=== PATIENT | male | born 1955 | race Asian ===

== ENCOUNTER 2020-01-22 16:28 | Inpatient (IN) | payer BC, MEDICAID ==
[~2020-01-22] VITALS: Ht 170.2 cm; Wt 61.2 kg
[2020-01-22 19:32] LABS: CLARITY URINE CLEAR (CLEAR); COLOR URINE YELLOW (YELLOW); KETONES URINE NEGATIVE (NEGATIVE); LEUKOCYTE ESTERASE URINE NEGATIVE (NEGATIVE); NITRITE URINE NEGATIVE (NEGATIVE); OCCULT BLOOD URINE NEGATIVE (NEGATIVE); PROTEIN URINE NEGATIVE (NEGATIVE); SPECIFIC GRAVITY URINE 1.032 (1.005-1.030); UROBILINOGEN URINE 0.2 E.U./dL (0.2-1.0)
[2020-01-22 19:35] LABS: HEMOGLOBIN. 17.6 g/dL (14.0-18.0); MEAN CORPUSCULAR HEMOGLOBIN 33.7 pg (28.0-32.0); MEAN CORPUSCULAR VOLUME 99.6 fL (80.0-94.0); MEAN PLATELET VOLUME 8.1 fl (7.4-10.4); PLATELET 116 x1000/uL (130-400); RED BLOOD CELL COUNT 5.22 mill/uL (4.7-6.1); RED CELL DISTRIBUTION WIDTH 13.4 % (11.6-14.6)
[2020-01-22 19:37] LABS: CHLORIDE 106 mEq/L (98-107)
[2020-01-22 19:45] LABS: INR 0.9; PROTHROMBIN TIME 10.2 sec (9.6-11.0)
[2020-01-22 19:56] LABS: PLATELET ESTIMATE DECREASED
[2020-01-23] MEDS ORDERED: DOCUSATE SODIUM 100MG CAPSULE PO PRN ×2 (06:30→09:00)
[2020-01-23] MEDS ORDERED: DEXTROSE 50% WATER 50ML SYRINGE IV PRN ×4 (06:30→09:00)
[2020-01-23] MEDS ORDERED: DIPHENHYDRAMINE 50MG/ML VIAL IV PRN ×2 (06:30→09:00)
[2020-01-23] MEDS ORDERED: ONDANSETRON HCL 4MG/2ML INJ IV PRN ×2 (06:30→09:00)
[2020-01-23] MEDS ORDERED: CLONIDINE 0.1MG TABLET PO PRN ×2 (06:30→09:00)
[2020-01-23] MEDS ORDERED: MAGNESIUM/ALUMINUM HYDROXIDE/SIMETHICONE 30ML UDC PO PRN ×2 (06:30→09:00)
[2020-01-23] MEDS ORDERED: ENOXAPARIN 40MG/0.4ML SYR SUBCUT SCH (06:30)
[2020-01-23] MEDS ORDERED: GUAIFENESIN 200MG/10ML SUGAR FREE UDC PO PRN ×2 (06:30→09:00)
[2020-01-23] MEDS ORDERED: IPRATROPIUM/ALBUTEROL 0.5-3(2.5)MG/3ML NEB HHN PRN ×2 (06:30→09:00)
[2020-01-23] MEDS ORDERED: ACETAMINOPHEN 325MG TABLET PO PRN (06:30)
[2020-01-23] MEDS ORDERED: HYDROCODONE/ACETAMINOPHEN 5/325MG TABLET PO PRN ×2 (06:30→09:00)
[2020-01-23 06:53] LABS: HEMATOCRIT 51.7 % (42.0-52.0); HEMOGLOBIN 17.6 g/dL (14.0-18.0); MEAN CORPUSCULAR HEMOGLOBIN 33.9 pg (28.0-32.0); MEAN CORPUSCULAR VOLUME 99.6 fL (80.0-94.0); PLATELET 114 x1000/uL (130-400); RED BLOOD CELL COUNT 5.19 mill/uL (4.7-6.1); RED CELL DISTRIBUTION WIDTH 13.3 % (11.6-14.6)
[2020-01-23 06:56] LABS: CHLORIDE 102 mEq/L (98-107)
[2020-01-23] MEDS ORDERED: INSULIN LISPRO 100 UNITS/ML SUBCUT SCH (08:20)
[2020-01-23] MEDS ORDERED: BLOOD SUGAR DIAGNOSTIC STRIP TEST SCH (09:00)
[2020-01-23] MEDS: ENOXAPARIN 40MG/0.4ML SYR SUBCUT SCH ×3 (09:00→11:00)
[2020-01-23] MEDS ORDERED: PANTOPRAZOLE SODIUM 40 MG/VIAL IV SCH (09:00)
[2020-01-23 09:05] VITALS: BP 134/86
[2020-01-23 09:10] VITALS: BP 134/86
[2020-01-23] MEDS: BLOOD SUGAR DIAGNOSTIC STRIP TEST SCH ×3 (11:40→20:49)
[2020-01-23 12:00] VITALS: BP 110/80
[2020-01-23] MEDS: INSULIN LISPRO 100 UNITS/ML SUBCUT SCH ×3 (12:10→21:00)
[2020-01-23] MEDS ORDERED: AZITHROMYCIN 500 MG TABLET PO SCH (14:30)
[2020-01-23 16:00] VITALS: BP 109/79
[2020-01-23] MEDS ORDERED: METF500T MT (16:48)
[2020-01-23] MEDS ORDERED: CRAN650C PO (16:48)
[2020-01-23] MEDS ORDERED: ERGO2000 PO (16:48)
[2020-01-23] MEDS ORDERED: DIPH25CA83 MT (16:48)
[2020-01-23] MEDS ORDERED: DOCU250C69 PO (16:48)
[2020-01-23] MEDS ORDERED: CYAN50003 PO (16:48)
[2020-01-23] MEDS ORDERED: MIRT15TA6 MT (16:48)
[2020-01-23] MEDS ORDERED: IBUP-2030 MT (16:48)
[2020-01-23] MEDS ORDERED: LISI-186 MT (16:48)
[2020-01-23] MEDS ORDERED: ATOR20TA65 MT (16:48)
[2020-01-23] MEDS ORDERED: THIA100T72 MT (16:48)
[2020-01-23] MEDS ORDERED: ATOR40TA70 MT (16:48)
[2020-01-23] MEDS ORDERED: GABA-531 MT (16:48)
[2020-01-23] MEDS ORDERED: TOPUD PO (16:48)
[2020-01-23] MEDS ORDERED: MULT-379 MT (16:48)
[2020-01-23] MEDS ORDERED: MAGN400C MT (16:48)
[2020-01-23] MEDS ORDERED: LORA10TA7 MT (16:48)
[2020-01-23] MEDS ORDERED: XALAO EACHEYE (16:48)
[2020-01-23] MEDS ORDERED: FLUT200B INH (16:48)
[2020-01-23] MEDS: HYDROXYCHLOROQUINE SULFATE 200MG TABLET PO SCH (17:27)
[2020-01-23] MEDS: ZINC SULFATE 220 MG ( 50 ) CAPSULE PO SCH (17:27)
[2020-01-23 20:00] VITALS: BP 127/71
[2020-01-23] MEDS: ASCORBIC ACID 500 MG TABLET PO SCH (20:49)
[2020-01-24] VITALS: BP 120/81
[2020-01-24 04:00] VITALS: BP 118/75
[2020-01-24] MEDS: INSULIN LISPRO 100 UNITS/ML SUBCUT SCH ×4 (06:38→21:00)
[2020-01-24] MEDS: BLOOD SUGAR DIAGNOSTIC STRIP TEST SCH ×4 (06:38→21:00)
[2020-01-24 08:00] VITALS: BP 121/75
[2020-01-24] MEDS: AZITHROMYCIN 250 MG TABLET PO SCH (09:53)
[2020-01-24] MEDS: ASCORBIC ACID 500 MG TABLET PO SCH ×2 (09:53→21:52)
[2020-01-24] MEDS: ZINC SULFATE 220 MG ( 50 ) CAPSULE PO SCH (09:53)
[2020-01-24] MEDS: ENOXAPARIN 40MG/0.4ML SYR SUBCUT SCH (09:53)
[2020-01-24] MEDS: HYDROXYCHLOROQUINE SULFATE 200MG TABLET PO SCH ×2 (09:54→16:26)
[2020-01-24] MEDS: PANTOPRAZOLE SODIUM 40 MG/VIAL IV SCH (09:54)
[2020-01-24 12:00] VITALS: BP 122/80
[2020-01-24] MEDS: ACETAMINOPHEN 325MG TABLET PO PRN (12:41)
[2020-01-24 16:00] VITALS: BP 119/72
[2020-01-24 20:00] VITALS: BP 116/75
[2020-01-25] VITALS: BP 101/68
[2020-01-25 05:30] VITALS: BP 119/81
[2020-01-25] MEDS: BLOOD SUGAR DIAGNOSTIC STRIP TEST SCH ×4 (06:05→21:00)
[2020-01-25] MEDS: INSULIN LISPRO 100 UNITS/ML SUBCUT SCH ×4 (06:05→21:00)
[2020-01-25] MEDS: ACETAMINOPHEN 325MG TABLET PO PRN ×2 (06:05→18:28)
[2020-01-25 08:00] VITALS: BP 148/89
[2020-01-25] MEDS: PANTOPRAZOLE SODIUM 40 MG/VIAL IV SCH (08:45)
[2020-01-25] MEDS: ZINC SULFATE 220 MG ( 50 ) CAPSULE PO SCH (08:46)
[2020-01-25] MEDS: HYDROXYCHLOROQUINE SULFATE 200MG TABLET PO SCH ×2 (08:46→18:09)
[2020-01-25] MEDS: AZITHROMYCIN 250 MG TABLET PO SCH (08:46)
[2020-01-25] MEDS: ENOXAPARIN 40MG/0.4ML SYR SUBCUT SCH (08:46)
[2020-01-25] MEDS: ASCORBIC ACID 500 MG TABLET PO SCH ×2 (08:46→22:24)
[2020-01-25 12:00] VITALS: BP 119/78
[2020-01-25 16:00] VITALS: BP 123/76
[2020-01-25 20:00] VITALS: BP 122/76
[2020-01-26] VITALS: BP 110/75
[2020-01-26 04:00] VITALS: BP 128/65
[2020-01-26] MEDS: ACETAMINOPHEN 325MG TABLET PO PRN ×3 (05:28→20:53)
[2020-01-26] MEDS: INSULIN LISPRO 100 UNITS/ML SUBCUT SCH ×4 (06:27→20:20)
[2020-01-26] MEDS: BLOOD SUGAR DIAGNOSTIC STRIP TEST SCH ×4 (06:27→20:20)
[2020-01-26 08:00] VITALS: BP 139/89
[2020-01-26] MEDS: HYDROXYCHLOROQUINE SULFATE 200MG TABLET PO SCH ×2 (09:35→17:45)
[2020-01-26] MEDS: ZINC SULFATE 220 MG ( 50 ) CAPSULE PO SCH (09:35)
[2020-01-26] MEDS: ASCORBIC ACID 500 MG TABLET PO SCH ×2 (09:35→20:53)
[2020-01-26] MEDS: AZITHROMYCIN 250 MG TABLET PO SCH (09:35)
[2020-01-26] MEDS: ENOXAPARIN 40MG/0.4ML SYR SUBCUT SCH (09:35)
[2020-01-26] MEDS: PANTOPRAZOLE SODIUM 40 MG/VIAL IV SCH (09:35)
[2020-01-26 12:00] VITALS: BP 111/88
[2020-01-26 16:00] VITALS: BP 130/80
[2020-01-26 20:00] VITALS: BP 134/90
[2020-01-27] VITALS: BP 126/81
[2020-01-27 04:00] VITALS: BP 136/64
[2020-01-27] MEDS: BLOOD SUGAR DIAGNOSTIC STRIP TEST SCH ×4 (05:40→21:00)
[2020-01-27] MEDS: ACETAMINOPHEN 325MG TABLET PO PRN ×3 (05:40→23:57)
[2020-01-27] MEDS: INSULIN LISPRO 100 UNITS/ML SUBCUT SCH ×4 (06:30→21:00)
[2020-01-27 08:00] VITALS: BP 136/81
[2020-01-27] MEDS: ZINC SULFATE 220 MG ( 50 ) CAPSULE PO SCH (08:17)
[2020-01-27] MEDS: ASCORBIC ACID 500 MG TABLET PO SCH ×2 (08:17→20:31)
[2020-01-27] MEDS: HYDROXYCHLOROQUINE SULFATE 200MG TABLET PO SCH ×2 (08:17→16:48)
[2020-01-27] MEDS: PANTOPRAZOLE SODIUM 40 MG/VIAL IV SCH (08:17)
[2020-01-27] MEDS: AZITHROMYCIN 250 MG TABLET PO SCH (08:17)
[2020-01-27] MEDS: ENOXAPARIN 40MG/0.4ML SYR SUBCUT SCH (08:18)
[2020-01-27 12:00] VITALS: BP 130/76
[2020-01-27 15:59] LABS: BASOPHILS % 0.2 % (0.0-2.0); HEMATOCRIT. 52.5 % (42.0-52.0); HEMOGLOBIN. 18.2 g/dL (14.0-18.0); LYMPHOCYTES % 12.3 % (20.0-50.0); MEAN CORPUSCULAR VOLUME 98.1 fL (80.0-94.0); MEAN PLATELET VOLUME 8.6 fl (7.4-10.4); MONOCYTES % 10.5 % (2.0-8.0); PLATELET 104 x1000/uL (130-400); RED BLOOD CELL COUNT 5.36 mill/uL (4.7-6.1); RED CELL DISTRIBUTION WIDTH 12.8 % (11.6-14.6)
[2020-01-27 16:02] LABS: CHLORIDE 99 mEq/L (98-107)
[2020-01-27 16:15] VITALS: BP 132/78
[2020-01-27 20:00] VITALS: BP 129/76
[2020-01-28 00:08] VITALS: BP 120/72
[2020-01-28 04:00] VITALS: BP 121/78
[2020-01-28] MEDS: ACETAMINOPHEN 325MG TABLET PO PRN ×3 (06:01→22:37)
[2020-01-28] MEDS: BLOOD SUGAR DIAGNOSTIC STRIP TEST SCH ×4 (06:01→22:37)
[2020-01-28] MEDS: INSULIN LISPRO 100 UNITS/ML SUBCUT SCH ×4 (06:37→22:47)
[2020-01-28 08:00] VITALS: BP 108/67
[2020-01-28] MEDS: PANTOPRAZOLE SODIUM 40 MG/VIAL IV SCH (08:44)
[2020-01-28] MEDS: ZINC SULFATE 220 MG ( 50 ) CAPSULE PO SCH (08:44)
[2020-01-28] MEDS: HYDROXYCHLOROQUINE SULFATE 200MG TABLET PO SCH (08:44)
[2020-01-28] MEDS: ASCORBIC ACID 500 MG TABLET PO SCH ×2 (08:44→22:37)
[2020-01-28] MEDS: ENOXAPARIN 40MG/0.4ML SYR SUBCUT SCH (08:45)
[2020-01-28 12:00] VITALS: BP 119/65
[2020-01-28 16:00] VITALS: BP 107/73
[2020-01-28 20:00] VITALS: BP 121/78
[2020-01-29] VITALS: BP 118/72
[2020-01-29 04:00] VITALS: BP 118/80
[2020-01-29] MEDS: INSULIN LISPRO 100 UNITS/ML SUBCUT SCH ×4 (06:49→21:00)
[2020-01-29] MEDS: BLOOD SUGAR DIAGNOSTIC STRIP TEST SCH ×4 (06:49→21:57)
[2020-01-29 08:00] VITALS: BP 128/79
[2020-01-29] MEDS: PANTOPRAZOLE SODIUM 40 MG/VIAL IV SCH (08:27)
[2020-01-29] MEDS: ENOXAPARIN 40MG/0.4ML SYR SUBCUT SCH (08:27)
[2020-01-29] MEDS: ZINC SULFATE 220 MG ( 50 ) CAPSULE PO SCH (08:27)
[2020-01-29] MEDS: ASCORBIC ACID 500 MG TABLET PO SCH ×2 (08:27→20:27)
[2020-01-29] MEDS: ACETAMINOPHEN 325MG TABLET PO PRN ×2 (08:33→16:57)
[2020-01-29 12:00] VITALS: BP 131/71
[2020-01-29 16:00] VITALS: BP 105/68
[2020-01-29 20:00] VITALS: BP 108/78
[2020-01-30] VITALS: BP 115/64
[2020-01-30 04:00] VITALS: BP 122/82
[2020-01-30 05:24] LABS: CHLORIDE 98 mEq/L (98-107)
[2020-01-30] MEDS: ACETAMINOPHEN 325MG TABLET PO PRN (05:31)
[2020-01-30] MEDS: INSULIN LISPRO 100 UNITS/ML SUBCUT SCH ×4 (06:00→21:00)
[2020-01-30] MEDS: BLOOD SUGAR DIAGNOSTIC STRIP TEST SCH ×4 (06:00→21:03)
[2020-01-30 06:27] LABS: BASOPHILS % 0.3 % (0.0-2.0); HEMATOCRIT. 50.7 % (42.0-52.0); HEMOGLOBIN. 17.7 g/dL (14.0-18.0); LYMPHOCYTES % 11.1 % (20.0-50.0); MEAN CORPUSCULAR HEMOGLOBIN 34.2 pg (28.0-32.0); MEAN CORPUSCULAR VOLUME 97.7 fL (80.0-94.0); MEAN PLATELET VOLUME 9.6 fl (7.4-10.4); MONOCYTES % 8.6 % (2.0-8.0); PLATELET 104 x1000/uL (130-400); RED BLOOD CELL COUNT 5.19 mill/uL (4.7-6.1)
[2020-01-30 07:52] VITALS: BP 117/81
[2020-01-30] MEDS: ENOXAPARIN 40MG/0.4ML SYR SUBCUT SCH (08:24)
[2020-01-30] MEDS: ASCORBIC ACID 500 MG TABLET PO SCH ×2 (08:24→21:04)
[2020-01-30] MEDS: ZINC SULFATE 220 MG ( 50 ) CAPSULE PO SCH (08:24)
[2020-01-30] MEDS: PANTOPRAZOLE SODIUM 40 MG/VIAL IV SCH (08:25)
[2020-01-30] MEDS ORDERED: POTASSIUM CHLORIDE 20MEQ TABLET SR PO SCH (11:15)
[2020-01-30 11:52] VITALS: BP 129/79
[2020-01-30 15:59] VITALS: BP 115/91
[2020-01-30 20:00] VITALS: BP 112/74
[2020-01-31] VITALS: BP 124/74
[2020-01-31 04:00] VITALS: BP 114/82
[2020-01-31] MEDS: BLOOD SUGAR DIAGNOSTIC STRIP TEST SCH ×4 (06:11→21:00)
[2020-01-31] MEDS: INSULIN LISPRO 100 UNITS/ML SUBCUT SCH ×4 (06:11→21:00)
[2020-01-31 08:00] VITALS: BP 114/73
[2020-01-31] MEDS: PANTOPRAZOLE SODIUM 40 MG/VIAL IV SCH (08:00)
[2020-01-31] MEDS: ASCORBIC ACID 500 MG TABLET PO SCH ×2 (08:00→21:06)
[2020-01-31] MEDS: ENOXAPARIN 40MG/0.4ML SYR SUBCUT SCH (08:00)
[2020-01-31] MEDS: ZINC SULFATE 220 MG ( 50 ) CAPSULE PO SCH (08:00)
[2020-01-31 12:00] VITALS: BP 125/70
[2020-01-31] MEDS: ACETAMINOPHEN 325MG TABLET PO PRN (15:40)
[2020-01-31 15:48] VITALS: BP 111/74
[2020-01-31 20:00] VITALS: BP 110/68
[2020-02-01] VITALS: BP 115/66
[2020-02-01 04:00] VITALS: BP 120/79
[2020-02-01] MEDS: INSULIN LISPRO 100 UNITS/ML SUBCUT SCH ×4 (07:10→21:01)
[2020-02-01] MEDS: BLOOD SUGAR DIAGNOSTIC STRIP TEST SCH ×4 (07:37→20:40)
[2020-02-01 08:00] VITALS: BP 95/59
[2020-02-01] MEDS: PANTOPRAZOLE SODIUM 40 MG/VIAL IV SCH (08:14)
[2020-02-01] MEDS: ENOXAPARIN 40MG/0.4ML SYR SUBCUT SCH (08:14)
[2020-02-01] MEDS: ZINC SULFATE 220 MG ( 50 ) CAPSULE PO SCH (08:14)
[2020-02-01] MEDS: ASCORBIC ACID 500 MG TABLET PO SCH ×2 (08:14→20:39)
[2020-02-01 12:00] VITALS: BP 99/74
[2020-02-01 16:00] VITALS: BP 112/66
[2020-02-01 20:00] VITALS: BP 104/70
[2020-02-01] MEDS: ACETAMINOPHEN 325MG TABLET PO PRN (21:02)
[2020-02-02] VITALS: BP 113/72
[2020-02-02 04:00] VITALS: BP 109/77
[2020-02-02] MEDS: BLOOD SUGAR DIAGNOSTIC STRIP TEST SCH ×4 (06:26→20:13)
[2020-02-02] MEDS: INSULIN LISPRO 100 UNITS/ML SUBCUT SCH ×4 (06:47→20:32)
[2020-02-02 08:00] VITALS: BP 116/67
[2020-02-02] MEDS: ASCORBIC ACID 500 MG TABLET PO SCH ×2 (08:23→20:13)
[2020-02-02] MEDS: ZINC SULFATE 220 MG ( 50 ) CAPSULE PO SCH (08:23)
[2020-02-02] MEDS: ENOXAPARIN 40MG/0.4ML SYR SUBCUT SCH (08:23)
[2020-02-02] MEDS: PANTOPRAZOLE SODIUM 40 MG/VIAL IV SCH (08:23)
[2020-02-02 12:00] VITALS: BP 118/88
[2020-02-02 16:00] VITALS: BP 111/74
[2020-02-02 20:00] VITALS: BP 113/72
[2020-02-03] VITALS: BP 106/71
[2020-02-03 04:00] VITALS: BP 98/58
[2020-02-03] MEDS: BLOOD SUGAR DIAGNOSTIC STRIP TEST SCH ×4 (06:31→21:00)
[2020-02-03] MEDS: INSULIN LISPRO 100 UNITS/ML SUBCUT SCH ×4 (06:31→21:00)
[2020-02-03 08:00] VITALS: BP 109/74
[2020-02-03] MEDS: ASCORBIC ACID 500 MG TABLET PO SCH ×2 (10:08→21:18)
[2020-02-03] MEDS: ZINC SULFATE 220 MG ( 50 ) CAPSULE PO SCH (10:08)
[2020-02-03] MEDS: PANTOPRAZOLE SODIUM 40 MG/VIAL IV SCH (10:08)
[2020-02-03] MEDS: ENOXAPARIN 40MG/0.4ML SYR SUBCUT SCH (10:09)
[2020-02-03 12:00] VITALS: BP 110/78
[2020-02-03 16:00] VITALS: BP 114/80
[2020-02-03 20:00] VITALS: BP 107/68
[2020-02-04] VITALS: BP 107/70
[2020-02-04 04:00] VITALS: BP 96/62
[2020-02-04] MEDS: BLOOD SUGAR DIAGNOSTIC STRIP TEST SCH ×4 (06:46→21:00)
[2020-02-04] MEDS: INSULIN LISPRO 100 UNITS/ML SUBCUT SCH ×4 (06:46→21:00)
[2020-02-04 08:00] VITALS: BP 131/76
[2020-02-04] MEDS: PANTOPRAZOLE SODIUM 40 MG/VIAL IV SCH (09:15)
[2020-02-04] MEDS: ZINC SULFATE 220 MG ( 50 ) CAPSULE PO SCH (09:15)
[2020-02-04] MEDS: ASCORBIC ACID 500 MG TABLET PO SCH ×2 (09:15→21:22)
[2020-02-04] MEDS: ENOXAPARIN 40MG/0.4ML SYR SUBCUT SCH (09:15)
[2020-02-04 12:00] VITALS: BP 105/59
[2020-02-04 16:00] VITALS: BP 118/66
[2020-02-04 20:00] VITALS: BP 108/75
[2020-02-05] VITALS: BP 116/73
[2020-02-05 04:00] VITALS: BP 105/72
[2020-02-05] MEDS: BLOOD SUGAR DIAGNOSTIC STRIP TEST SCH ×4 (06:45→21:00)
[2020-02-05] MEDS: INSULIN LISPRO 100 UNITS/ML SUBCUT SCH ×4 (06:46→21:00)
[2020-02-05 08:00] VITALS: BP 99/65
[2020-02-05] MEDS: ZINC SULFATE 220 MG ( 50 ) CAPSULE PO SCH (09:54)
[2020-02-05] MEDS: PANTOPRAZOLE SODIUM 40 MG/VIAL IV SCH (09:54)
[2020-02-05] MEDS: ASCORBIC ACID 500 MG TABLET PO SCH ×2 (09:54→21:10)
[2020-02-05] MEDS: ENOXAPARIN 40MG/0.4ML SYR SUBCUT SCH (09:56)
[2020-02-05 12:00] VITALS: BP 112/70
[2020-02-05 16:00] VITALS: BP 108/69
[2020-02-05] MEDS ORDERED: SODIUM CHLORIDE 45ML SPRAY NS SCH (16:00)
[2020-02-05] MEDS: SODIUM CHLORIDE 45ML SPRAY NS SCH ×2 (17:06→23:56)
[2020-02-05 20:00] VITALS: BP 108/71
[2020-02-06] VITALS: BP 133/76
[2020-02-06 04:00] VITALS: BP 112/72
[2020-02-06] MEDS: SODIUM CHLORIDE 45ML SPRAY NS SCH ×3 (06:14→18:00)
[2020-02-06] MEDS: INSULIN LISPRO 100 UNITS/ML SUBCUT SCH ×4 (06:25→21:00)
[2020-02-06] MEDS: BLOOD SUGAR DIAGNOSTIC STRIP TEST SCH ×4 (06:25→21:00)
[2020-02-06 08:00] VITALS: BP 130/86
[2020-02-06] MEDS: ENOXAPARIN 40MG/0.4ML SYR SUBCUT SCH (08:31)
[2020-02-06] MEDS: ZINC SULFATE 220 MG ( 50 ) CAPSULE PO SCH (08:32)
[2020-02-06] MEDS: PANTOPRAZOLE SODIUM 40 MG/VIAL IV SCH (08:32)
[2020-02-06] MEDS: ASCORBIC ACID 500 MG TABLET PO SCH ×2 (08:32→22:03)
[2020-02-06 11:48] VITALS: BP 114/78
[2020-02-06 14:18] LABS: CHLORIDE 109 mEq/L (98-107)
[2020-02-06 16:00] VITALS: BP 114/78
[2020-02-06 18:32] LABS: BASOPHILS % 0.8 % (0.0-2.0); EOSINOPHILS % 2.5 % (0.0-5.0); HEMATOCRIT. 43.1 % (42.0-52.0); HEMOGLOBIN. 15.3 g/dL (14.0-18.0); LYMPHOCYTES % 25.1 % (20.0-50.0); MEAN CORPUSCULAR HEMOGLOBIN 36.1 pg (28.0-32.0); MEAN CORPUSCULAR VOLUME 101.9 fL (80.0-94.0); MEAN PLATELET VOLUME 7.9 fl (7.4-10.4); MONOCYTES % 14.2 % (2.0-8.0); NEUTROPHILS % 57.4 % (40.0-76.0); PLATELET 218 x1000/uL (130-400); RED BLOOD CELL COUNT 4.23 mill/uL (4.7-6.1); RED CELL DISTRIBUTION WIDTH 12.7 % (11.6-14.6)
[2020-02-06 20:00] VITALS: BP 120/80
[2020-02-07] VITALS (7 sets, daily range): BP systolic 95–128; BP diastolic 65–84
[2020-02-07] MEDS: SODIUM CHLORIDE 45ML SPRAY NS SCH ×5 (00:48→23:37)
[2020-02-07] MEDS: BLOOD SUGAR DIAGNOSTIC STRIP TEST SCH ×4 (06:37→21:49)
[2020-02-07] MEDS: INSULIN LISPRO 100 UNITS/ML SUBCUT SCH ×4 (07:02→21:00)
[2020-02-07] MEDS: ENOXAPARIN 40MG/0.4ML SYR SUBCUT SCH (08:00)
[2020-02-07] MEDS: PANTOPRAZOLE SODIUM 40 MG/VIAL IV SCH (08:00)
[2020-02-07] MEDS: ASCORBIC ACID 500 MG TABLET PO SCH ×2 (08:01→21:44)
[2020-02-07] MEDS: ZINC SULFATE 220 MG ( 50 ) CAPSULE PO SCH (08:01)
[2020-02-08 04:00] VITALS: BP 102/67
[2020-02-08] MEDS: SODIUM CHLORIDE 45ML SPRAY NS SCH ×3 (06:00→17:41)
[2020-02-08] MEDS: BLOOD SUGAR DIAGNOSTIC STRIP TEST SCH ×4 (06:24→20:54)
[2020-02-08] MEDS: INSULIN LISPRO 100 UNITS/ML SUBCUT SCH ×4 (06:24→21:02)
[2020-02-08 08:00] VITALS: BP 109/78
[2020-02-08] MEDS: ZINC SULFATE 220 MG ( 50 ) CAPSULE PO SCH (08:23)
[2020-02-08] MEDS: ASCORBIC ACID 500 MG TABLET PO SCH ×2 (08:23→21:01)
[2020-02-08] MEDS: PANTOPRAZOLE SODIUM 40 MG/VIAL IV SCH (08:23)
[2020-02-08] MEDS: ENOXAPARIN 40MG/0.4ML SYR SUBCUT SCH (08:24)
[2020-02-08 12:00] VITALS: BP 106/67
[2020-02-08 16:00] VITALS: BP 123/72
[2020-02-08 20:00] VITALS: BP 115/71
[2020-02-09] VITALS: BP 110/65
[2020-02-09 04:00] VITALS: BP 104/63
[2020-02-09] MEDS: SODIUM CHLORIDE 45ML SPRAY NS SCH ×5 (06:00→23:31)
[2020-02-09] MEDS: BLOOD SUGAR DIAGNOSTIC STRIP TEST SCH ×4 (06:31→21:00)
[2020-02-09] MEDS: INSULIN LISPRO 100 UNITS/ML SUBCUT SCH ×4 (06:32→21:00)
[2020-02-09 08:00] VITALS: BP 104/70
[2020-02-09] MEDS: ASCORBIC ACID 500 MG TABLET PO SCH ×2 (08:18→21:19)
[2020-02-09] MEDS: ENOXAPARIN 40MG/0.4ML SYR SUBCUT SCH (08:18)
[2020-02-09] MEDS: ZINC SULFATE 220 MG ( 50 ) CAPSULE PO SCH (08:18)
[2020-02-09] MEDS: PANTOPRAZOLE SODIUM 40 MG/VIAL IV SCH (08:18)
[2020-02-09 12:00] VITALS: BP 113/65
[2020-02-09 16:00] VITALS: BP 105/65
[2020-02-09 20:00] VITALS: BP 107/57
[2020-02-10] VITALS: BP 112/60
[2020-02-10 04:00] VITALS: BP 105/62
[2020-02-10] MEDS: SODIUM CHLORIDE 45ML SPRAY NS SCH ×3 (06:00→18:00)
[2020-02-10] MEDS: INSULIN LISPRO 100 UNITS/ML SUBCUT SCH ×4 (06:54→21:00)
[2020-02-10] MEDS: BLOOD SUGAR DIAGNOSTIC STRIP TEST SCH ×4 (06:54→21:05)
[2020-02-10 08:00] VITALS: BP 101/63
[2020-02-10] MEDS: ASCORBIC ACID 500 MG TABLET PO SCH ×2 (09:22→20:54)
[2020-02-10] MEDS: ZINC SULFATE 220 MG ( 50 ) CAPSULE PO SCH (09:22)
[2020-02-10] MEDS: PANTOPRAZOLE SODIUM 40 MG/VIAL IV SCH (09:23)
[2020-02-10] MEDS: ENOXAPARIN 40MG/0.4ML SYR SUBCUT SCH (09:23)
[2020-02-10 12:00] VITALS: BP 95/47
[2020-02-10 15:33] LABS: EOSINOPHILS % 1.9 % (0.0-5.0); HEMOGLOBIN. 15.8 g/dL (14.0-18.0); LYMPHOCYTES % 24.7 % (20.0-50.0); MEAN CORPUSCULAR HEMOGLOBIN 34.4 pg (28.0-32.0); MEAN CORPUSCULAR VOLUME 100.1 fL (80.0-94.0); MEAN PLATELET VOLUME 7.9 fl (7.4-10.4); MONOCYTES % 8.2 % (2.0-8.0); NEUTROPHILS % 64.2 % (40.0-76.0); PLATELET 196 x1000/uL (130-400); RED BLOOD CELL COUNT 4.59 mill/uL (4.7-6.1); RED CELL DISTRIBUTION WIDTH 12.9 % (11.6-14.6)
[2020-02-10 16:00] VITALS: BP 103/51
[2020-02-10 16:07] LABS: CHLORIDE 108 mEq/L (98-107)
[2020-02-10 20:00] VITALS: BP 100/58
[2020-02-11] VITALS: BP 113/60
[2020-02-11] MEDS: SODIUM CHLORIDE 45ML SPRAY NS SCH ×5 (00:40→17:17)
[2020-02-11 04:00] VITALS: BP 109/58
[2020-02-11] MEDS: INSULIN LISPRO 100 UNITS/ML SUBCUT SCH ×4 (06:45→20:55)
[2020-02-11] MEDS: BLOOD SUGAR DIAGNOSTIC STRIP TEST SCH ×4 (06:45→20:55)
[2020-02-11 08:00] VITALS: BP 98/57
[2020-02-11] MEDS: ASCORBIC ACID 500 MG TABLET PO SCH ×2 (08:05→20:23)
[2020-02-11] MEDS: ENOXAPARIN 40MG/0.4ML SYR SUBCUT SCH (08:05)
[2020-02-11] MEDS: ZINC SULFATE 220 MG ( 50 ) CAPSULE PO SCH (08:05)
[2020-02-11] MEDS: PANTOPRAZOLE SODIUM 40 MG/VIAL IV SCH (08:05)
[2020-02-11 12:00] VITALS: BP 103/59
[2020-02-11 16:00] VITALS: BP 97/69
[2020-02-11 20:00] VITALS: BP 96/65
[2020-02-12] VITALS: BP 109/74
[2020-02-12] MEDS: SODIUM CHLORIDE 45ML SPRAY NS SCH ×4 (00:53→18:00)
[2020-02-12 04:00] VITALS: BP 107/75
[2020-02-12] MEDS: INSULIN LISPRO 100 UNITS/ML SUBCUT SCH (05:52)
[2020-02-12] MEDS: BLOOD SUGAR DIAGNOSTIC STRIP TEST SCH (05:52)
[2020-02-12 08:00] VITALS: BP 122/74
[2020-02-12] MEDS: ENOXAPARIN 40MG/0.4ML SYR SUBCUT SCH (09:07)
[2020-02-12] MEDS: ASCORBIC ACID 500 MG TABLET PO SCH (09:08)
[2020-02-12] MEDS: PANTOPRAZOLE SODIUM 40 MG/VIAL IV SCH (09:08)
[2020-02-12] MEDS: ZINC SULFATE 220 MG ( 50 ) CAPSULE PO SCH (09:08)
[2020-02-12] MEDS: ACETAMINOPHEN 325MG TABLET PO PRN (11:50)
[2020-02-12 12:00] VITALS: BP 129/90
[2020-02-12 16:58] VITALS: BP 129/90
== END 2020-02-12 20:20 | DRG 720 ==
LOC: ER 16:28 → 7EST 19:51 → EDBEDREQ 19:53 → EDBEDREQTM 19:53 → EDBEDREQ 19:54 → ENRESERV 01-23 07:35 → ER 01-23 08:52 → 7EST 01-28 14:32
PROVIDERS: ADMIT Family Medicine Adult Medicine; ATTEND Family Medicine Adult Medicine
DX: A41.89 Other specified sepsis (principal); U07.1 COVID-19; J96.01 Acute respiratory failure with hypoxia; D64.9 Anemia, unspecified; E11.9 Type 2 diabetes mellitus without complications; D72.810 Lymphocytopenia; E78.00 Pure hypercholesterolemia, unspecified; Z96.642 Presence of left artificial hip joint; M24.572 Contracture, left ankle; M19.90 Unspecified osteoarthritis, unspecified site; I10 Essential (primary) hypertension; E78.5 Hyperlipidemia, unspecified; F17.200 Nicotine dependence, unspecified, uncomplicated; F19.90 Other psychoactive substance use, unspecified, uncomplicated; E87.6 Hypokalemia; J12.89 Other viral pneumonia; J06.9 Acute upper respiratory infection, unspecified; Z79.899 Other long term (current) drug therapy; Z79.84 Long term (current) use of oral hypoglycemic drugs
CPT/HCPCS: 36415; 71045; 80048; 80053; 81003; 82962; 83036; 83605; 83735; 84145; 84484; 85025; 85027; 87635; 93005; 99291; C9113; J1650; J1815; J2405